=== PATIENT | female | born 1940 | race Caucasian/White ===

== ENCOUNTER 2017-10-16 21:09 | Observation (INO) | payer OTHER, BC ==
[~2017-10-16] VITALS: Ht 160 cm; Wt 55.0 kg
[~2017-10-16 21:09] MED LIST: ASPERDRINK81 MG PO; GABAPENTIN300 MG PO; LORTAB 5-325 M1 EACH PO; NAPROSYN500 MG PO; OMEPRAZOLE40 M1 PO; ULTRAM50 MG PO
[2017-10-16 22:45] LABS: HEMATOCRIT 38.9 % (36.0-46.0); HEMOGLOBIN 13.1 G/DL (11.9-15.5); MCH 31.7 PG (29.0-34.0); MCHC 33.7 G/DL (30.0-36.0); MCV 94.2 FL (83-99); PLATELET COUNT 281 K/uL (156-360); RBC DIS.WIDTH-CV 12.3 % (11.8-14.6); RBC DIS.WIDTH-SD 42.7 % (39-53); RED BLOOD COUNT 4.13 M/uL (3.80-5.20); WHITE BLOOD COUNT 4.8 K/uL (4.1-10.2)
[2017-10-16 23:04] LABS: CHLORIDE 105 MEQ/L (99-109); SODIUM 141 MEQ/L (136-147)
[2017-10-16 23:07] LABS: TROP-I INTERPRETATION NEGATIVE; TROPONIN-I < 0.01 ng/mL (0.0-0.30)
[2017-10-16 23:10] LABS: CREATININE 0.8 MG/DL (0.6-1.3); GFR ESTIMATE (CALCULATED) > 59 mL/min/; GLUCOSE 95 mg/dL (70-99); UREA NITROGEN (BUN) 14 mg/dL (9-23)
[2017-10-17 03:05] LABS: INTER. NORMALIZED RATIO 0.9
[2017-10-17 03:07] LABS: D-DIMER ELISA < 150.00 ng/mLDDU (<230); PTT 26.2 SEC (25-37)
[2017-10-17 03:21] LABS: TROP-I INTERPRETATION NEGATIVE; TROPONIN-I < 0.01 ng/mL (0.0-0.30)
[2017-10-17 05:06] VITALS: BP 118/55
[2017-10-17 07:31] VITALS: BP 124/56
[2017-10-17 10:22] LABS: TROP-I INTERPRETATION NEGATIVE; TROPONIN-I < 0.01 ng/mL (0.0-0.30)
[2017-10-17 10:34] LABS: HDL CHOLESTEROL 51 MG/DL (Desirable>=50); LDL CHOLESTEROL 85 mg/dL (Desirable<100); NON-HDL CHOLESTEROL 105 mg/dL (Desirable<160); TOTAL CHOLESTEROL 156 mg/dL (Desirable<200); TRIGLYCERIDES 99 MG/DL (Normal: <150)
[2017-10-17] MEDS ORDERED: ZOCOR20 MG PO (11:43)
[2017-10-17 12:35] LABS: TROP-I INTERPRETATION NEGATIVE; TROPONIN-I < 0.01 ng/mL (0.0-0.30)
[2017-10-17 12:53] LABS: APPEARANCE CLEAR ((CLEAR)); BILIRUBIN NEGATIVE; BLOOD NEGATIVE; COLOR STRAW ((YELLOW)); GLUCOSE (STRIP) NEGATIVE; KETONES NEGATIVE; LEUKOCYTES NEGATIVE; NITRITE NEGATIVE; PROTEIN (STRIP) NEGATIVE; SPECIFIC GRAVITY 1.006 (1.000-1.030); UCUL ADDED? NO; UROBILINOGEN 0.2 MG/DL (0.2-1.0)
[2017-10-17 13:34] VITALS: BP 120/67
[2017-10-17] MEDS ORDERED: ASPIR-LOW81 MG PO (14:49)
[2017-10-17 15:40] VITALS: BP 126/59
== END 2017-10-17 16:07 | disposition home or self-care (01) ==
LOC: EME 21:09 → EDOF 10-17 03:54 → ENRESERV 10-17 03:56 → 5WEST 10-17 04:49
PROVIDERS: Emergency Medicine; Hospitalist
DX: R07.9 Chest pain, unspecified (principal); I10 Essential (primary) hypertension; E78.5 Hyperlipidemia, unspecified; M79.602 Pain in left arm; K21.9 Gastro-esophageal reflux disease without esophagitis; M79.7 Fibromyalgia; R20.0 Anesthesia of skin; Z90.710 Acquired absence of both cervix and uterus; Z82.49 Family history of ischemic heart disease and other diseases of the circulatory system; Z80.9 Family history of malignant neoplasm, unspecified; Z77.22 Contact with and (suspected) exposure to environmental tobacco smoke (acute) (chronic)
CPT/HCPCS: 71046; 80048; 80061; 81003; 83880; 84484; 85027; 85379; 85610; 85730; 93005; 99281; 99285; G0378; J1644; J2270